=== PATIENT | male | born 1985 | race Caucasian/White ===

== ENCOUNTER 2020-05-13 20:34 | Emergency (ER) | payer SELFPAY ==
[~2020-05-13] VITALS: Ht 170.2 cm; Wt 77.1 kg
[2020-05-13 20:45] VITALS: Ht 170.2 cm; Wt 77.1 kg
[2020-05-13 21:47] LABS: BASOPHIL % 0.9 % (0.2-1.5); PLATELET COUNT 275 x10^3mcL (152-348)
[2020-05-13 22:13] LABS: ALKALINE PHOSPHATASE 160 U/L (46-116); ALT/SGPT 95 U/L (16-63); AST/SGOT 102 U/L (15-37); BILIRUBIN TOTAL 0.2 mg/dL (0.20-1.00); CALCIUM 7.6 mg/dL (8.5-10.1); CARBON DIOXIDE 26.3 mmol/L (21-32); CHLORIDE SERUM 110 mmol/L (98-107); CREATININE SERUM 0.8 mg/dL (0.7-1.3); GFR1 > 60 mL/min; GLUCOSE SERUM 109 mg/dL (74-106); SODIUM SERUM 147 mmol/L (136-145)
[2020-05-13 22:17] LABS: ALBUMIN 2.8 g/dL (3.4-5.0); TOTAL PROTEIN, SERUM 5.8 g/dL (6.4-8.2)
[2020-05-13 22:21] LABS: POTASSIUM SERUM 2.6 mmol/L (3.5-5.1)
[2020-05-14 09:17] VITALS: BP 140/92
== END 2020-05-14 09:17 | disposition home or self-care (01) ==
LOC: EDBD 20:34 → ED 20:34
PROVIDERS: Emergency Medicine
DX: F10.129 Alcohol abuse with intoxication, unspecified (principal); E87.6 Hypokalemia; R40.4 Transient alteration of awareness
CPT/HCPCS: G0480

== ENCOUNTER 2020-06-21 02:11 | Emergency (ER) | payer OTHER ==
[~2020-06-21] VITALS: Ht 175.3 cm; Wt 79.4 kg
[2020-06-21 02:22] VITALS: BP 155/105
[2020-06-21 02:43] VITALS: Ht 175.3 cm; Wt 79.4 kg
== END 2020-06-21 03:30 ==
LOC: ED 02:11
DX: Z02.89 Encounter for other administrative examinations (principal)

== ENCOUNTER 2020-07-25 17:56 | Emergency (ER) | payer SELFPAY ==
[~2020-07-25] VITALS: Ht 175.3 cm; Wt 77.1 kg
[2020-07-25 18:13] VITALS: BP 120/73; Ht 175.3 cm; Wt 77.1 kg
== END 2020-07-26 01:29 | disposition home or self-care (01) ==
LOC: ED 17:56
DX: F10.129 Alcohol abuse with intoxication, unspecified (principal)